=== PATIENT | male | born 1975 | race Caucasian/White ===

== ENCOUNTER → 2019-09-23 | Outpatient (CLI) | payer OTHER ==
--- NOTE | 2019-09-29 20:54 | PFR/MVV ---
[facility] [place] [address] PULMONARY FUNCTION MVV/REPORT Name: WALI PERRY III Room #: [facility]#: [id number] Admission: 09/23/19 Attend Phys: Kanu Norman MD Discharge: Date of : 73 Report #: [id number] THIS REPORT FOR: //name// >> SPIROMETRY: (BTPS) Height: 77 in cm Weight: 262 lbs kg Exam Date: 09/23/19 PRE-RX POST-RX PRED BEST %PRED BEST %PRED %CHG FVC LITERS . 6.03 . 4.84 . 80 . 6.49 . 108 . 34 FEV1 LITERS . 4.38 . 3.05 . 70 . 4.30 . 98 . 41 FEV1/FVC % . 72 . 63 . 87 . 66 . 92 . 5 WVE88-79% L/Sec . 4.11 . 1.57 . 38 . 3.04 . 74 . 94 PEF L/SEC . 10.81 . 5.27 . 49 . 6.60 . 61 . 25 FEF50/FIF50 UNITLESS . <1.00 . .85 . . 5.08 . . 500 MVV L/Min . 183 . 36 . 20 f 1/Min . . 175 . >> LUNG VOLUMES: (BTPS) PRE-RX POST-RX PRED AVG %PRED AVG %PRED %CHG VC Liters . 6.03 . 4.90 . 81 . . . TLC Liters . 8.56 . 7.05 . 82 . . . RV Liters . 2.60 . 2.15 . 83 . . . RV/TLC % . 32 . 31 . 95 . . . FRC PL Liters . 4.25 . 2.99 . 70 . . . FRC N2 Liters . 4.25 . . . . . ERV Liters . 2.03 . 0.84 . 41 . . . IC Liters . 4.06 . 4.15 . 102 . . . >> DIFFUSION: DLCO ml/Min/mmHg . . . . . . DL [place] ml/Min/mmHg . . . . . . DLCO/VA ml/Min/mmHg . . . . . . VA Liters . . . . . . COMMENTS: COMMENTS: >> RESISTANCE: [facility] [address] [place] [address] PULMONARY FUNCTION MVV/REPORT Name: WALI PERRY [facility] Room #: [facility]#: [id number] Admission: 09/23/19 Attend Phys: Kanu Norman MD Discharge: Date of : 73 Report #: [id number] PRE-RX PRED AVG %PRED Raw Total cmH20/L/Sec . . 3.21 . Raw Insp cmH20/L/Sec . . 0.97 . Raw Exp cmH20/L/Sec . . 0.90 . Raw cmH20/L/Sec . 1.01 . 1.40 . 138 Gaw L/Sec/cmH20 . 1.020 . 0.714 . 70 sRaw cmH20 Sec . 4.31 . 7.18 . 166 sGaw l/cmH20 Sec . .232 . 0.139 . 60 Vtq Liters . . 5.13 . # = OUTSIDE 95% CONFIDENCE INTERVAL CALIBRATION: PRED: 3.00 ACTUAL: EXP 3.01 INSP 3.02 [facility]-OL10-06 [facility]-05 N-1804-4 >> INTERPRETATION/IMPRESSION: CC: Kanu Norman PULMONARY FUNCTION STUDIES SPIROMETRY: FEV1 is 3.05 liters (70%), FVC is 4.84 liters (80%). FEV1/FVC ratio is 63%. Post-bronchodilator therapy with significant response, FEV1 increased to 4.30 liters (41% change), FVC increased to 6.49 liters (34% change.) LUNG VOLUMES: Total lung capacity is 7.05 liters (82%). RV is 2.15 liters (83%). Diffusing capacity was not completed. IMPRESSION: Pulmonary function studies were consistent with a mild obstructive airflow defect with a significant response to bronchodilator therapy. <ELECTRONICALLY SIGNED> By: Ramos Anderson MD 09/29/194 Ramos Anderson MD /nt
== END ==
LOC: PUL 09:05
DX: R06.02 Shortness of breath (principal); R07.9 Chest pain, unspecified